=== PATIENT | female | born 1955 | race Caucasian/White ===

== ENCOUNTER 2017-06-28 08:54 | Day surgery (SDC) | payer OTHER ==
[2017-06-28 09:19] LABS: URINE APPEARANCE SLCLOUDY; URINE BILIRUBIN NEGATIVE (NEGATIVE); URINE BLOOD NEGATIVE (NEGATIVE); URINE COLOR YELLOW; URINE GLUCOSE (UA) NEGATIVE (NEGATIVE); URINE KETONE TRACE (NEGATIVE); URINE LEUK ESTERASE TRACE (NEGATIVE); URINE NITRITE POSITIVE (NEGATIVE); URINE PROTEIN NEGATIVE (NEGATIVE); URINE UROBILINOGEN NEGATIVE mg/dL (0.2-1.0)
[2017-06-28 09:29] LABS: EPI CELLS MODERATE /HPF (FEW); URINE BACTERIA RARE /hpf (NONE SEEN); URINE MUCUS RARE
--- NOTE | 2017-06-28 09:35 | HP ---
History & Physical Update - History History: No Change - Physical Physical: No Change - Assessment Assessment: No Change - Plan Plan: No Change
[2017-06-28] MEDS ORDERED: LIDOCAINE HCL 1%, 10 MG/ML (20ML VIAL) ONE (12:37)
[2017-06-28] MEDS ORDERED: MIDAZOLAM HCL 2 MG/2 ML SINGLE DOSE VIAL ONE (12:47)
[2017-06-28] MEDS ORDERED: PROPOFOL 20 ML ONE ×2 (12:51)
[2017-06-28] MEDS ORDERED: ceFAZolin SODIUM 1 GM VIAL IVPB ONE (12:54)
[2017-06-28] MEDS ORDERED: PROMETHAZINE HCL 25 MG/1 ML VIAL IVPUSH PRN (14:04)
[2017-06-28] MEDS ORDERED: ONDANSETRON 4 MG/2 ML VIAL IVPUSH PRN (14:04)
[2017-06-28] MEDS ORDERED: oxyCODONE HCL 5 MG TABLET PO PRN (14:04)
[2017-06-28] MEDS ORDERED: LACTATED RINGERS SOLUTION 1,000 ML IV SCH (14:15)
[2017-06-28 15:39] VITALS: TEMP 97.8
[2017-06-28] MEDS ORDERED: ACETAMINOPHEN 325 MG TABLET (FP) PO ONE (15:55)
[2017-06-28] MEDS ORDERED: ACETAMINOPHEN 325 MG TABLET (FP) ONE (15:58)
[2017-06-28] MEDS ORDERED: ACETAMINOPHEN 325 MG TABLET (FP) PO PRN ×2 (16:10→16:27)
[2017-06-28 17:32] VITALS: BP 150/80; PULSE 76
--- NOTE | 2017-06-29 12:11 | OP ---
DATE OF OPERATION: 06/28/2017 PREOPERATIVE DIAGNOSIS: Left breast ductal carcinoma in situ. POSTOPERATIVE DIAGNOSIS: Left breast ductal carcinoma in situ. PROCEDURE PERFORMED: Left breast wire-localized lumpectomy. SURGEON: Bertha Mcdonnell MD ANESTHESIA: General. ESTIMATED BLOOD LOSS: Minimal. COMPLICATIONS: None. DISPOSITION: Stable at the end of the procedure. INDICATIONS FOR PROCEDURE: The patient had a routine screening mammography and ultrasound that noted a density in the upper outer left breast. A needle biopsy of this, done by the radiologist, showed ductal carcinoma in situ. My recommendation was a lumpectomy. The procedure was discussed with her and all her questions answered. DESCRIPTION OF PROCEDURE: The patient was brought to [facility] in [place]. She was taken for breast imaging, where a wire was used to localize the clip in the upper outer left breast. She was then brought to the operating room. After the induction of general anesthesia and IV antibiotics, the left breast was prepped and draped in the usual sterile fashion. The area in the upper outer left breast was anesthetized with 1% lidocaine without epinephrine. A periareolar incision was made in the upper outer left breast, and the wire was used as a guide to get down to the area of interest. This was excised en bloc, tagged with a long suture lateral and a short suture superior, and sent for specimen radiograph. Hemostasis was assured with electrocautery. The specimen radiograph showed the clip and wire to be intact in the specimen. This was sent to Pathology for permanent section. Once hemostasis was assured, the parenchyma was approximated with interrupted 2-0 Vicryl. The skin was approximated with interrupted 3-0 Vicryl and running 4-0 Prolene. A sterile dressing with Tegaderm and 4 x 4's was applied. She tolerated the procedure well. She was extubated on the operating room table and taken to Recovery in good condition. Edi [id number]
--- NOTE | 2017-07-03 14:19 | PATH ---
Surgical Pathology Report Patient Name: REGINA DRAPER [facility]. Rec. #: [id number] /Age/Gender: 1955 (Age: 61) / F Account: [id number] [facility] Taken: 06/28/2017 Received: 06/28/2017 Reported: 07/03/2017 Physicians: eBrtha Mcdonnell M.D. Specimen(s) Received LEFT BREAST LUMPECTOMY Clinical History DCIS Final Diagnosis BREAST, LEFT, LUMPECTOMY: DUCTAL CARCINOMA IN SITU (DCIS), SOLID AND CRIBRIFORM TYPES, LOW NUCLEAR GRADE, PRESENT IN TWO OF TWELVE SLIDES (06/24). DCIS MEASURES 7 MM IN GREATEST DIMENSION, MICROSCOPICALLY. SURGICAL MARGINS ARE UNINVOLVED BY CARCINOMA; CARCINOMA IS AT 2 MM FROM THE CLOSEST SUPERIOR MARGIN. PATHOLOGIC STAGE (pTNM): pTis pNx SEE DCIS CASE SUMMARY BELOW. Comments DCIS of the Breast: Surgical Pathology Cancer Case Summary (Based on AJCC TNM 8 th edition) Procedure _X_ Excision (less than total mastectomy) Specimen Laterality _X_ Left Size (Extent) of DCIS Estimated size (extent) of DCIS (greatest dimension using gross and microscopic evaluation): at least (millimeters): 7 mm Number of blocks with DCIS: 2 Number of blocks examined: 12 Note: The size (extent) of DCIS is an estimation of the volume of breast tissue occupied by DCIS. Histologic Type _X_ Ductal carcinoma in situ Architectural Patterns _X_ Cribriform _X_ Solid Nuclear Grade _X_ Grade I (low) Necrosis _X_ Not identified Margins _X_ Uninvolved by DCIS Distance from closest margin (millimeters): 2 mm Specify margin(s): superior margin Regional Lymph Nodes _X_ No lymph nodes submitted or found Microcalcifications _X_ Not identified Breast Prognostic markers: Results of Estrogen Receptor (ER) and Progesterone Receptor (ND) studies performed on block "8" at [facility] are as follows: ER (clone [id number] mouse monoclonal antibody by [employer]): 99% nuclear staining with strong intensity (Positive). ND (clone16 mouse monoclonal antibody by [employer]):~60% nuclear staining with weak to moderate intensity (Positive). Positive and negative controls (internal if applicable) show appropriate results. Formalin fixation and cold ischemic times are within current ASCO/CAP recommendations for ER, ND and Her2 testing. Comment: Immunohistochemical stains performed and interpreted at [facility] for p63 and smooth muscle myosin (SMMHC) show preserved myoepithelial cells surrounding the DCIS. Electronically Signed Amparo Pressley M.D. Gross Description Received fresh on an AccuGrid, labeled "left breast lumpectomy," is a 5.6 x 3.7 x 1.7 cm. almonte-yellow, irregular, portion of fibroadipose tissue with a needle localization wire present. There is a short suture marking the superior aspect and a long suture marking the lateral aspect, per the surgeon. There is no skin or nipple present. The specimen is inked as follows: superior and lateral blue; inferior green; medial yellow; anterior red; deep black. The specimen is serially sectioned from medial to lateral. Sectioning reveals abundant dense, white, focally firm fibrous tissue. A biopsy clip is identified. No definitive mass is identified. Hyster Driver sections are submitted in 12 cassettes as follows: 1-9-fibrous tissue sequentially submitted from medial to lateral with the biopsy clip in cassettes 6-7 (each with anterior, superior and inferior margins); 10-medial margin; 11-lateral margin; 12-deep margin. Total formalin fixation time: Approximately 8 hours 06/28/201706/28/2017
== END 2017-06-28 17:15 | disposition home or self-care (01) ==
LOC: JASU-SURG 08:54 → EDBD 11:00 → JASU-SURG 17:15
PROVIDERS: ATTEND Surgery
PROC: 0HBU0ZZ Excision of Left Breast, Open Approach (ICD-10-PCS; principal; 2017-06-28 11:00)
DX: D05.12 Intraductal carcinoma in situ of left breast (principal)
CPT/HCPCS: 19281; 81003; 81015; 82962; 88307-TC; 88341-TC; 88342-TC; 94760

== ENCOUNTER 2020-05-06 10:06 | Emergency (ER) | payer MEDICARE, OTHER ==
[2020-05-06 10:26] VITALS: BP 175/87; PULSE 89; TEMP 97.2; BMI 38.6
[2020-05-06] MEDS ORDERED: AMPICILLIN NA/SULBACTAM NA 3 GM in SODIUM CHLORIDE 100 ML IVPB ONE (10:57)
== END 2020-05-06 12:17 | disposition home or self-care (01) ==
LOC: JERFT 10:06
DX: N61.22 Granulomatous mastitis, left breast (principal)
CPT/HCPCS: 99284-25

== ENCOUNTER 2020-12-19 10:02 | Emergency (ER) | payer OTHER ==
[2020-12-19 10:13] VITALS: BP 160/85; PULSE 91; TEMP 97.9; BMI 30.5
== END 2020-12-19 11:50 | disposition home or self-care (01) ==
LOC: JER 10:02
DX: N61.0 Mastitis without abscess (principal)
CPT/HCPCS: 99281-25

== ENCOUNTER 2021-03-03 16:36 | Emergency (ER) | payer OTHER ==
[2021-03-03 16:45] VITALS: BP 163/88; PULSE 84; TEMP 98.3; BMI 31.7
== END 2021-03-03 20:21 | disposition home or self-care (01) ==
LOC: JER 16:36
DX: N61.0 Mastitis without abscess (principal)
CPT/HCPCS: 76604; 99284-25

== ENCOUNTER 2021-07-01 13:39 | Inpatient (IN) | payer OTHER ==
[2021-07-01 13:48] VITALS: BMI 29.2
[2021-07-01 15:18] LABS: BASO % 0.7 % (0-2.0); EOS % 1.2 % (0-4.5); HEMATOCRIT 37.7 % (32.4-45.2); HEMOGLOBIN 12.7 GM/dL (10.7-15.3); LYMPH % 20.9 % (8-40); MCH 28.5 pg (25.7-33.7); MCHC 33.8 g/dl (32.0-36.0); MEAN CELL VOLUME 84.2 fl (80-96); MONO % 3.8 % (3.8-10.2); NEUT % 73.4 % (42.8-82.8); PLATELET COUNT 340 10^3/uL (134-434); RBC 4.47 M/mm3 (3.60-5.2); RDW 14.1 % (11.6-15.6); WHITE BLOOD COUNT 6.7 K/mm3 (4.0-10.0)
[2021-07-01 15:42] LABS: CALCIUM 9.2 mg/dL (8.5-10.1)
[2021-07-01 15:43] LABS: ALBUMIN 3.8 g/dl (3.4-5.0)
[2021-07-01 15:46] LABS: CREATININE 0.8 mg/dL (0.55-1.3)
[2021-07-01 15:48] LABS: BILIRUBIN,TOTAL 0.6 mg/dL (0.2-1); TOT PROT 7.9 g/dl (6.4-8.2)
[2021-07-01] MEDS ORDERED: METOCLOPRAMIDE HCL INJECTION 10 MG/2 ML VIAL IVPB ONE (16:15)
[2021-07-01] MEDS ORDERED: ACETAMINOPHEN 325 MG TABLET (FP) PO ONE (16:21)
[2021-07-01] MEDS ORDERED: METOCLOPRAMIDE HCL INJECTION 10 MG/2 ML VIAL ONE (16:43)
[2021-07-01] MEDS ORDERED: ACETAMINOPHEN 325 MG TABLET (FP) ONE (16:44)
[2021-07-01] MEDS ORDERED: MECLIZINE HCL 12.5 MG TABLET PO PRN (17:32)
[2021-07-01] MEDS ORDERED: ACETAMINOPHEN/CAFFEINE/BUTALBITAL 1 TAB PO PRN (17:32)
[2021-07-01] MEDS ORDERED: amLODIPine BESYLATE 5 MG TABLET (FP) PO ONE (17:45)
[2021-07-01] MEDS ORDERED: amLODIPine BESYLATE 5 MG TABLET (FP) ONE (18:43)
[2021-07-01] MEDS ORDERED: HEPARIN NA (PORCINE) 5,000 UNITS/ML 1ML VIAL ONE ×2 (18:43→22:50)
[2021-07-01] MEDS: HEPARIN NA (PORCINE) 5,000 UNITS/ML 1ML VIAL SQ SCH ×2 (18:50→23:26)
[2021-07-01 19:03] LABS: SARS AG REFLEX COV19 SEND OUT negative (Negative)
[2021-07-02] MEDS ORDERED: HEPARIN NA (PORCINE) 5,000 UNITS/ML 1ML VIAL ONE ×2 (06:08→15:12)
[2021-07-02] MEDS: HEPARIN NA (PORCINE) 5,000 UNITS/ML 1ML VIAL SQ SCH ×3 (06:21→21:48)
[2021-07-02] MEDS ORDERED: NIFEdipine E.R. 30 MG TABLET ONE (07:58)
[2021-07-02] MEDS: INSULIN SLIDING SCALE (NOVOLOG) 1 VIAL SQ SCH ×3 (09:11→17:07)
[2021-07-02] MEDS: NIFEdipine E.R. 30 MG TABLET PO SCH (10:00)
[2021-07-02 10:54] LABS: EOS % 2.1 % (0-4.5); HEMOGLOBIN 12.8 GM/dL (10.7-15.3); LYMPH % 47.1 % (8-40); MCH 28.5 pg (25.7-33.7); MCHC 33.7 g/dl (32.0-36.0); MEAN CELL VOLUME 84.8 fl (80-96); MEAN PLT VOLUME 7.9 fl (7.5-11.1); MONO % 5.5 % (3.8-10.2); NEUT % 44.3 % (42.8-82.8); PLATELET COUNT 318 10^3/uL (134-434); RBC 4.49 M/mm3 (3.60-5.2); WHITE BLOOD COUNT 4.6 K/mm3 (4.0-10.0)
[2021-07-02 11:03] LABS: CALCIUM 9.2 mg/dL (8.5-10.1)
[2021-07-02 11:04] LABS: ALBUMIN 3.8 g/dl (3.4-5.0); BLOOD UREA NITROGEN 10.5 mg/dL (7-18)
[2021-07-02 11:07] LABS: CREATININE 0.6 mg/dL (0.55-1.3)
[2021-07-02 11:09] LABS: BILIRUBIN,TOTAL 0.3 mg/dL (0.2-1); TOT PROT 7.9 g/dl (6.4-8.2)
[2021-07-02] MEDS: LISINOPRIL 5 MG TABLET PO SCH (15:00)
[2021-07-02 15:07] LABS: SARS-CoV-2 NAA Not Detected (Not Detected)
[2021-07-02] MEDS ORDERED: LISINOPRIL 5 MG TABLET ONE (15:12)
[2021-07-02] MEDS ORDERED: PNEUMOC 13-VAL CONJ-DIP CRM/PF 0.5 ML DISP.SYRIN IM ONE (17:03)
[2021-07-03] MEDS: HEPARIN NA (PORCINE) 5,000 UNITS/ML 1ML VIAL SQ SCH ×2 (06:02→13:31)
[2021-07-03] MEDS: INSULIN SLIDING SCALE (NOVOLOG) 1 VIAL SQ SCH ×2 (06:03→12:41)
[2021-07-03] MEDS: NIFEdipine E.R. 30 MG TABLET PO SCH (09:00)
[2021-07-03] MEDS: LISINOPRIL 5 MG TABLET PO SCH (09:00)
[2021-07-03 15:09] VITALS: BP 135/76; PULSE 88; TEMP 98.1
== END 2021-07-03 17:06 | disposition home or self-care (01) | DRG 149 ==
LOC: JER 13:39 → JERBED 17:20 → OBSVTOIN 17:32 → J4W 07-02 15:51
DX: H81.13 Benign paroxysmal vertigo, bilateral (principal); E87.1 Hypo-osmolality and hyponatremia; I10 Essential (primary) hypertension; E11.9 Type 2 diabetes mellitus without complications; Z85.3 Personal history of malignant neoplasm of breast; R51.9 Headache, unspecified; R11.0 Nausea
CPT/HCPCS: 36415; 70450-TC; 71045-TC-FY; 80053; 82962; 84484; 85025; 87426; 90670; 93005; 93010; 93306-TC; 99285-25; C9803; G0378; J1644; U0003; U0005

== ENCOUNTER 2021-07-04 16:52 | Inpatient (IN) | payer OTHER ==
[2021-07-04] MEDS ORDERED: MECLIZINE HCL 25 MG TABLET (FP) PO ONE (17:51)
[2021-07-04] MEDS ORDERED: MECLIZINE HCL 25 MG TABLET (FP) ONE (18:09)
[2021-07-04 20:18] LABS: BASO % 0.5 % (0-2.0); EOS % 0.6 % (0-4.5); HEMATOCRIT 39.1 % (32.4-45.2); HEMOGLOBIN 12.9 GM/dL (10.7-15.3); LYMPH % 17.3 % (8-40); MCH 27.9 pg (25.7-33.7); MEAN CELL VOLUME 84.5 fl (80-96); MEAN PLT VOLUME 7.9 fl (7.5-11.1); MONO % 4.6 % (3.8-10.2); PLATELET COUNT 355 10^3/uL (134-434); RBC 4.62 M/mm3 (3.60-5.2); RDW 14.4 % (11.6-15.6); WHITE BLOOD COUNT 7.4 K/mm3 (4.0-10.0)
[2021-07-04 20:32] LABS: ALBUMIN 3.7 g/dl (3.4-5.0); BLOOD UREA NITROGEN 11.4 mg/dL (7-18); CALCIUM 9.3 mg/dL (8.5-10.1)
[2021-07-04 20:35] LABS: CREATININE 0.8 mg/dL (0.55-1.3)
[2021-07-04 20:37] LABS: BILIRUBIN,TOTAL 0.3 mg/dL (0.2-1); TOT PROT 8.1 g/dl (6.4-8.2)
[2021-07-04] MEDS ORDERED: ONDANSETRON 4 MG/2 ML VIAL ONE (20:49)
[2021-07-04] MEDS ORDERED: ACETAMINOPHEN 325 MG TABLET (FP) PO PRN (21:28)
[2021-07-04] MEDS ORDERED: ATORVASTATIN CA 80 MG TABLET (FP) ONE (22:52)
[2021-07-04] MEDS: ATORVASTATIN CA 80 MG TABLET (FP) PO SCH (22:55)
[2021-07-04] MEDS: INSULIN SLIDING SCALE (NOVOLOG) 1 VIAL SQ SCH (22:55)
[2021-07-04] MEDS: FLUTICASONE PROP 0.05% 16 GM NASAL SPRAY NS SCH (22:55)
[2021-07-05] MEDS ORDERED: ONDANSETRON 4 MG/2 ML VIAL IVPUSH PRN (01:00)
[2021-07-05] MEDS ORDERED: MECLIZINE HCL 12.5 MG TABLET PO PRN (02:00)
[2021-07-05 08:01] LABS: BASO % 0.4 % (0-2.0); EOS % 1.4 % (0-4.5); HEMOGLOBIN 12.4 GM/dL (10.7-15.3); LYMPH % 20.5 % (8-40); MCH 27.8 pg (25.7-33.7); MCHC 32.6 g/dl (32.0-36.0); MEAN CELL VOLUME 85.2 fl (80-96); MEAN PLT VOLUME 8.4 fl (7.5-11.1); MONO % 6.1 % (3.8-10.2); NEUT % 71.6 % (42.8-82.8); PLATELET COUNT 354 10^3/uL (134-434); RBC 4.46 M/mm3 (3.60-5.2); RDW 14.2 % (11.6-15.6); WHITE BLOOD COUNT 7.6 K/mm3 (4.0-10.0)
[2021-07-05] MEDS: INSULIN SLIDING SCALE (NOVOLOG) 1 VIAL SQ SCH ×4 (08:03→22:43)
[2021-07-05 08:08] LABS: EPI CELLS 9 /uL (0-25.1); HYALINE CASTS 5 /uL (0-3.1); URINE APPEARANCE CLOUDY; URINE BACTERIA >9,000 /uL (0-1359); URINE BILIRUBIN NEGATIVE (NEGATIVE); URINE COLOR YELLOW; URINE GLUCOSE (UA) 3+ (NEGATIVE); URINE KETONE TRACE (NEGATIVE); URINE LEUK ESTERASE 1+ (NEGATIVE); URINE NITRITE NEGATIVE (NEGATIVE); URINE PROTEIN TRACE (NEGATIVE); URINE RBC 11 /uL (0-23.9); URINE UROBILINOGEN 0.2 mg/dL (0.2-1.0); URINE WBC 340 /uL (0-25.8)
[2021-07-05 08:13] LABS: ALBUMIN 3.5 g/dl (3.4-5.0); BLOOD UREA NITROGEN 14.7 mg/dL (7-18); CALCIUM 9.2 mg/dL (8.5-10.1); MAGNESIUM 2.2 mg/dL (1.8-2.4)
[2021-07-05 08:14] LABS: CHOLESTEROL 261 mg/dL (50-200); TRIGLYCERIDES 280 mg/dL (0-150)
[2021-07-05 08:16] LABS: CREATININE 0.8 mg/dL (0.55-1.3); LDL CHOLESTEROL (ONLY SJRH) 159 mg/dL (5-100); PHOSPHOROUS 4.3 mg/dL (2.5-4.9)
[2021-07-05 08:18] LABS: BILIRUBIN,TOTAL 0.3 mg/dL (0.2-1); HDL CHOLESTEROL 53 mg/dL (40-60); TOT PROT 7.4 g/dl (6.4-8.2)
[2021-07-05] MEDS ORDERED: ACETAMINOPHEN INJECTION 100 ML IVPB ONE (08:21)
[2021-07-05] MEDS ORDERED: ENOXAPARIN NA (PORCINE) 40 MG/0.4 ML DISP.SYRIN SQ ONE (08:21)
[2021-07-05] MEDS ORDERED: NIFEdipine E.R. 30 MG TABLET ONE (08:21)
[2021-07-05] MEDS ORDERED: METOCLOPRAMIDE HCL INJECTION 10 MG/2 ML VIAL ONE (08:21)
[2021-07-05] MEDS ORDERED: LISINOPRIL 5 MG TABLET PO SCH (10:00)
[2021-07-05] MEDS ORDERED: NIFEdipine E.R. 30 MG TABLET PO SCH (10:00)
[2021-07-05] MEDS: ASPIRIN COATED 81 MG TABLET.EC PO SCH (10:47)
[2021-07-05] MEDS: ENOXAPARIN NA (PORCINE) 40 MG/0.4 ML DISP.SYRIN SQ SCH (10:47)
[2021-07-05] MEDS ORDERED: LISINOPRIL 5 MG TABLET PO ONE (15:29)
[2021-07-05] MEDS: FLUTICASONE PROP 0.05% 16 GM NASAL SPRAY NS SCH ×2 (18:38→22:47)
[2021-07-05] MEDS: MECLIZINE HCL 12.5 MG TABLET PO SCH ×2 (18:40→23:49)
[2021-07-05] MEDS ORDERED: NIFEdipine E.R. 30 MG TABLET PO ONE (19:15)
[2021-07-05] MEDS ORDERED: LABETALOL HCL 100 MG TABLET (FP) PO ONE (20:15)
[2021-07-05] MEDS ORDERED: INSULIN (LEVEMIR) 100 UNITS/ML UNITS SQ SCH (22:00)
[2021-07-05] MEDS: LISINOPRIL 5 MG TABLET PO SCH (22:35)
[2021-07-05] MEDS: ATORVASTATIN CA 80 MG TABLET (FP) PO SCH (22:36)
[2021-07-06] MEDS: BENZOCAINE/MENTH/CETYLPYRD CL 1 EACH LOZENGE MM PRN (05:36)
[2021-07-06] MEDS: MECLIZINE HCL 12.5 MG TABLET PO SCH ×3 (05:36→21:39)
[2021-07-06] MEDS: INSULIN SLIDING SCALE (NOVOLOG) 1 VIAL SQ SCH ×4 (06:08→21:41)
[2021-07-06 08:58] LABS: HEMATOCRIT 36.1 % (32.4-45.2); HEMOGLOBIN 11.8 GM/dL (10.7-15.3); MCHC 32.8 g/dl (32.0-36.0); MEAN CELL VOLUME 85.5 fl (80-96); PLATELET COUNT 309 10^3/uL (134-434); RBC 4.22 M/mm3 (3.60-5.2); RDW 14.1 % (11.6-15.6); WHITE BLOOD COUNT 6.3 K/mm3 (4.0-10.0)
[2021-07-06 09:19] LABS: CALCIUM 8.9 mg/dL (8.5-10.1)
[2021-07-06 09:22] LABS: BLOOD UREA NITROGEN 17.6 mg/dL (7-18)
[2021-07-06 09:23] LABS: CREATININE 0.8 mg/dL (0.55-1.3)
[2021-07-06] MEDS ORDERED: LISINOPRIL 5 MG TABLET PO SCH (10:00)
[2021-07-06] MEDS ORDERED: DEXTROSE 5%-WATER - 50 ML IVPB ONE (11:32)
[2021-07-06] MEDS ORDERED: cefTRIAXone SODIUM 1 GM VIAL ONE (11:32)
[2021-07-06] MEDS: CEFTRIAXONE 1 GM in DEXTROSE 5%-WATER - 50 ML IVPB SCH (11:35)
[2021-07-06] MEDS: ASPIRIN COATED 81 MG TABLET.EC PO SCH (11:36)
[2021-07-06] MEDS: CLOPIDOGREL BISULFATE 75 MG TABLET (FP) PO SCH (11:37)
[2021-07-06] MEDS: NIFEdipine E.R. 30 MG TABLET PO SCH (11:37)
[2021-07-06] MEDS: ENOXAPARIN NA (PORCINE) 40 MG/0.4 ML DISP.SYRIN SQ SCH (11:38)
[2021-07-06] MEDS: FLUTICASONE PROP 0.05% 16 GM NASAL SPRAY NS SCH ×2 (11:38→21:39)
[2021-07-06] MEDS: LISINOPRIL 5 MG TABLET PO SCH ×2 (11:49→21:40)
[2021-07-06 13:14] VITALS: BMI 30.2
[2021-07-06] MEDS ORDERED: ATORVASTATIN CA 40 MG TABLET (FP) ONE (21:05)
[2021-07-06] MEDS: ATORVASTATIN CA 80 MG TABLET (FP) PO SCH (21:40)
[2021-07-07] MEDS: MECLIZINE HCL 12.5 MG TABLET PO SCH (06:36)
[2021-07-07] MEDS: INSULIN SLIDING SCALE (NOVOLOG) 1 VIAL SQ SCH ×5 (06:36→22:42)
[2021-07-07 08:21] LABS: HEMATOCRIT 35.3 % (32.4-45.2); HEMOGLOBIN 11.8 GM/dL (10.7-15.3); MCH 28.6 pg (25.7-33.7); MCHC 33.5 g/dl (32.0-36.0); MEAN CELL VOLUME 85.6 fl (80-96); MEAN PLT VOLUME 7.9 fl (7.5-11.1); PLATELET COUNT 278 10^3/uL (134-434); RBC 4.12 M/mm3 (3.60-5.2); RDW 14.4 % (11.6-15.6)
[2021-07-07 08:44] LABS: ALBUMIN 3.3 g/dl (3.4-5.0); BLOOD UREA NITROGEN 16.4 mg/dL (7-18); CALCIUM 8.5 mg/dL (8.5-10.1)
[2021-07-07 08:48] LABS: CREATININE 0.7 mg/dL (0.55-1.3); PHOSPHOROUS 4.6 mg/dL (2.5-4.9)
[2021-07-07 08:50] LABS: TOT PROT 7.1 g/dl (6.4-8.2)
[2021-07-07 08:53] LABS: BILIRUBIN,TOTAL 0.4 mg/dL (0.2-1)
[2021-07-07] MEDS: INSULIN (LEVEMIR) 100 UNITS/ML UNITS SQ SCH (08:56)
[2021-07-07] MEDS ORDERED: DEXTROSE 5%-WATER - 50 ML IVPB ONE (09:04)
[2021-07-07] MEDS ORDERED: cefTRIAXone SODIUM 1 GM VIAL ONE (09:04)
[2021-07-07] MEDS: CLOPIDOGREL BISULFATE 75 MG TABLET (FP) PO SCH (09:05)
[2021-07-07] MEDS: ASPIRIN COATED 81 MG TABLET.EC PO SCH (09:05)
[2021-07-07] MEDS: NIFEdipine E.R. 30 MG TABLET PO SCH (09:05)
[2021-07-07] MEDS: ENOXAPARIN NA (PORCINE) 40 MG/0.4 ML DISP.SYRIN SQ SCH (09:05)
[2021-07-07] MEDS: LISINOPRIL 5 MG TABLET PO SCH (09:05)
[2021-07-07] MEDS: FLUTICASONE PROP 0.05% 16 GM NASAL SPRAY NS SCH ×2 (09:06→22:51)
[2021-07-07] MEDS: CEFTRIAXONE 1 GM in DEXTROSE 5%-WATER - 50 ML IVPB SCH (09:06)
[2021-07-07] MEDS ORDERED: MECLIZINE HCL 12.5 MG TABLET PO ONE (10:28)
[2021-07-07] MEDS ORDERED: INSULIN (LEVEMIR) 100 UNITS/ML UNITS SQ SCH (22:00)
[2021-07-07] MEDS ORDERED: ATORVASTATIN CA 40 MG TABLET (FP) ONE (22:09)
[2021-07-07] MEDS: ATORVASTATIN CA 80 MG TABLET (FP) PO SCH (22:32)
[2021-07-07] MEDS: LISINOPRIL 20 MG TABLET PO SCH (22:32)
[2021-07-07] MEDS: MECLIZINE HCL 25 MG TABLET (FP) PO SCH (22:32)
[2021-07-07] MEDS: ACETAMINOPHEN 325 MG TABLET (FP) PO PRN (22:43)
[2021-07-08] MEDS: INSULIN (LEVEMIR) 100 UNITS/ML UNITS SQ SCH ×2 (06:38→21:53)
[2021-07-08] MEDS: INSULIN SLIDING SCALE (NOVOLOG) 1 VIAL SQ SCH ×4 (06:39→21:59)
[2021-07-08 08:55] LABS: HEMATOCRIT 35.2 % (32.4-45.2); HEMOGLOBIN 11.7 GM/dL (10.7-15.3); MCH 28.4 pg (25.7-33.7); MCHC 33.2 g/dl (32.0-36.0); MEAN CELL VOLUME 85.6 fl (80-96); PLATELET COUNT 308 10^3/uL (134-434); RBC 4.12 M/mm3 (3.60-5.2); RDW 14.2 % (11.6-15.6); WHITE BLOOD COUNT 6.8 K/mm3 (4.0-10.0)
[2021-07-08 09:16] LABS: BLOOD UREA NITROGEN 13.5 mg/dL (7-18); CALCIUM 9.3 mg/dL (8.5-10.1)
[2021-07-08 09:21] LABS: CREATININE 0.7 mg/dL (0.55-1.3); PHOSPHOROUS 4.5 mg/dL (2.5-4.9)
[2021-07-08] MEDS ORDERED: DEXTROSE 5%-WATER - 50 ML IVPB ONE (09:30)
[2021-07-08] MEDS ORDERED: cefTRIAXone SODIUM 1 GM VIAL ONE (09:30)
[2021-07-08] MEDS: MECLIZINE HCL 25 MG TABLET (FP) PO SCH ×2 (09:31→21:52)
[2021-07-08] MEDS: LISINOPRIL 20 MG TABLET PO SCH ×2 (09:31→21:59)
[2021-07-08] MEDS: NIFEdipine E.R. 30 MG TABLET PO SCH (09:31)
[2021-07-08] MEDS: CLOPIDOGREL BISULFATE 75 MG TABLET (FP) PO SCH (09:31)
[2021-07-08] MEDS: ASPIRIN COATED 81 MG TABLET.EC PO SCH (09:31)
[2021-07-08] MEDS: CEFTRIAXONE 1 GM in DEXTROSE 5%-WATER - 50 ML IVPB SCH (09:32)
[2021-07-08] MEDS: FLUTICASONE PROP 0.05% 16 GM NASAL SPRAY NS SCH ×2 (09:32→21:53)
[2021-07-08] MEDS: ENOXAPARIN NA (PORCINE) 40 MG/0.4 ML DISP.SYRIN SQ SCH (09:32)
[2021-07-08] MEDS ORDERED: guaiFENesin/CODEINE 10 ML UNIT-DOSE CUPS PO ONE (20:20)
[2021-07-08] MEDS ORDERED: ATORVASTATIN CA 40 MG TABLET (FP) ONE ×2 (21:07→22:01)
[2021-07-08] MEDS: ATORVASTATIN CA 80 MG TABLET (FP) PO SCH (21:59)
[2021-07-08] MEDS: BENZOCAINE/MENTH/CETYLPYRD CL 1 EACH LOZENGE MM PRN (21:59)
[2021-07-08] MEDS: ACETAMINOPHEN 325 MG TABLET (FP) PO PRN (21:59)
[2021-07-09] MEDS: INSULIN (LEVEMIR) 100 UNITS/ML UNITS SQ SCH ×2 (06:16→21:52)
[2021-07-09] MEDS: INSULIN SLIDING SCALE (NOVOLOG) 1 VIAL SQ SCH ×4 (06:16→21:52)
[2021-07-09] MEDS ORDERED: guaiFENesin 200 MG/10 ML 10 ML UNIT-DOSE CUPS PO PRN (09:17)
[2021-07-09] MEDS ORDERED: cefTRIAXone SODIUM 1 GM VIAL ONE (09:21)
[2021-07-09] MEDS ORDERED: DEXTROSE 5%-WATER - 50 ML IVPB ONE (09:21)
[2021-07-09] MEDS: CEFTRIAXONE 1 GM in DEXTROSE 5%-WATER - 50 ML IVPB SCH (09:24)
[2021-07-09] MEDS: ENOXAPARIN NA (PORCINE) 40 MG/0.4 ML DISP.SYRIN SQ SCH (09:24)
[2021-07-09] MEDS: ASPIRIN COATED 81 MG TABLET.EC PO SCH (09:24)
[2021-07-09] MEDS: NIFEdipine E.R. 30 MG TABLET PO SCH (09:24)
[2021-07-09] MEDS: MECLIZINE HCL 25 MG TABLET (FP) PO SCH ×2 (09:24→21:53)
[2021-07-09] MEDS: CLOPIDOGREL BISULFATE 75 MG TABLET (FP) PO SCH (09:24)
[2021-07-09] MEDS: LISINOPRIL 20 MG TABLET PO SCH ×2 (09:25→21:53)
[2021-07-09] MEDS: FLUTICASONE PROP 0.05% 16 GM NASAL SPRAY NS SCH ×2 (09:25→21:53)
[2021-07-09] MEDS ORDERED: GLYCERIN 1 RECTAL SUPPOSITORY, ADULT RC ONE (10:00)
[2021-07-09] MEDS: POLYETHYLENE GLYCOL (HEALTHYLAX) 3350 17 GM PACKET PO SCH (10:19)
[2021-07-09] MEDS ORDERED: guaiFENesin/CODEINE 10 ML UNIT-DOSE CUPS PO ONE (19:54)
[2021-07-09] MEDS ORDERED: ATORVASTATIN CA 40 MG TABLET (FP) ONE (21:14)
[2021-07-09] MEDS: BENZOCAINE/MENTH/CETYLPYRD CL 1 EACH LOZENGE MM PRN (21:53)
[2021-07-09] MEDS: DOCUSATE SODIUM 100 MG CAPSULE (FP) PO SCH (21:53)
[2021-07-09] MEDS: ACETAMINOPHEN 325 MG TABLET (FP) PO PRN (21:53)
[2021-07-09] MEDS: ATORVASTATIN CA 80 MG TABLET (FP) PO SCH (21:53)
[2021-07-10] MEDS: INSULIN (LEVEMIR) 100 UNITS/ML UNITS SQ SCH ×2 (06:03→21:40)
[2021-07-10] MEDS: INSULIN SLIDING SCALE (NOVOLOG) 1 VIAL SQ SCH ×4 (06:03→21:41)
[2021-07-10 08:15] LABS: HEMATOCRIT 34.7 % (32.4-45.2); HEMOGLOBIN 11.7 GM/dL (10.7-15.3); MCH 28.7 pg (25.7-33.7); MCHC 33.7 g/dl (32.0-36.0); MEAN CELL VOLUME 85.3 fl (80-96); MEAN PLT VOLUME 7.4 fl (7.5-11.1); PLATELET COUNT 358 10^3/uL (134-434); RBC 4.07 M/mm3 (3.60-5.2); RDW 14.2 % (11.6-15.6)
[2021-07-10 08:40] LABS: CALCIUM 9.2 mg/dL (8.5-10.1)
[2021-07-10 08:41] LABS: BLOOD UREA NITROGEN 11.4 mg/dL (7-18); MAGNESIUM 2.1 mg/dL (1.8-2.4)
[2021-07-10 08:44] LABS: CREATININE 0.7 mg/dL (0.55-1.3); PHOSPHOROUS 3.9 mg/dL (2.5-4.9)
[2021-07-10] MEDS ORDERED: cefTRIAXone SODIUM 1 GM VIAL ONE (08:47)
[2021-07-10] MEDS ORDERED: DEXTROSE 5%-WATER - 50 ML IVPB ONE (08:47)
[2021-07-10] MEDS: CEFTRIAXONE 1 GM in DEXTROSE 5%-WATER - 50 ML IVPB SCH (09:18)
[2021-07-10] MEDS: ENOXAPARIN NA (PORCINE) 40 MG/0.4 ML DISP.SYRIN SQ SCH (09:18)
[2021-07-10] MEDS: CLOPIDOGREL BISULFATE 75 MG TABLET (FP) PO SCH (09:19)
[2021-07-10] MEDS: ASPIRIN COATED 81 MG TABLET.EC PO SCH (09:19)
[2021-07-10] MEDS: LISINOPRIL 20 MG TABLET PO SCH ×2 (09:19→21:39)
[2021-07-10] MEDS: POLYETHYLENE GLYCOL (HEALTHYLAX) 3350 17 GM PACKET PO SCH (09:19)
[2021-07-10] MEDS: MECLIZINE HCL 25 MG TABLET (FP) PO SCH ×2 (09:19→21:39)
[2021-07-10] MEDS: FLUTICASONE PROP 0.05% 16 GM NASAL SPRAY NS SCH ×2 (09:20→21:40)
[2021-07-10] MEDS: LABETALOL HCL 100 MG TABLET (FP) PO SCH ×2 (11:24→21:38)
[2021-07-10] MEDS: NIFEdipine E.R. 90 MG TABLET PO SCH (11:25)
[2021-07-10] MEDS ORDERED: ARTIFICIAL TEARS (POLYVINYL ALCOHOL) OPTH DROPS OU PRN (11:53)
[2021-07-10] MEDS ORDERED: ATORVASTATIN CA 40 MG TABLET (FP) ONE (21:32)
[2021-07-10] MEDS: ACETAMINOPHEN 325 MG TABLET (FP) PO PRN (21:38)
[2021-07-10] MEDS: DOCUSATE SODIUM 100 MG CAPSULE (FP) PO SCH (21:38)
[2021-07-10] MEDS: ATORVASTATIN CA 80 MG TABLET (FP) PO SCH (21:40)
[2021-07-11] MEDS: METHYL SALICYLATE/MENTHOL OINT 30 GM TUBE TP SCH ×3 (00:24→21:11)
[2021-07-11] MEDS: INSULIN (LEVEMIR) 100 UNITS/ML UNITS SQ SCH ×2 (06:34→21:07)
[2021-07-11] MEDS: INSULIN SLIDING SCALE (NOVOLOG) 1 VIAL SQ SCH ×4 (06:35→21:07)
[2021-07-11] MEDS: ACETAMINOPHEN 325 MG TABLET (FP) PO PRN ×2 (06:36→16:26)
[2021-07-11 08:49] LABS: HEMATOCRIT 34.9 % (32.4-45.2); HEMOGLOBIN 11.4 GM/dL (10.7-15.3); MCH 28.2 pg (25.7-33.7); MCHC 32.7 g/dl (32.0-36.0); MEAN CELL VOLUME 86.3 fl (80-96); MEAN PLT VOLUME 7.8 fl (7.5-11.1); PLATELET COUNT 348 10^3/uL (134-434); RBC 4.04 M/mm3 (3.60-5.2); RDW 14.3 % (11.6-15.6); WHITE BLOOD COUNT 9.7 K/mm3 (4.0-10.0)
[2021-07-11 09:11] LABS: CALCIUM 8.6 mg/dL (8.5-10.1)
[2021-07-11 09:12] LABS: BLOOD UREA NITROGEN 12.7 mg/dL (7-18); MAGNESIUM 2.1 mg/dL (1.8-2.4)
[2021-07-11 09:15] LABS: CREATININE 0.7 mg/dL (0.55-1.3); PHOSPHOROUS 4.3 mg/dL (2.5-4.9)
[2021-07-11] MEDS ORDERED: DEXTROSE 5%-WATER - 50 ML IVPB ONE (10:00)
[2021-07-11] MEDS ORDERED: cefTRIAXone SODIUM 1 GM VIAL ONE (10:00)
[2021-07-11] MEDS: MECLIZINE HCL 25 MG TABLET (FP) PO SCH ×2 (10:02→21:02)
[2021-07-11] MEDS: ASPIRIN COATED 81 MG TABLET.EC PO SCH (10:03)
[2021-07-11] MEDS: LABETALOL HCL 100 MG TABLET (FP) PO SCH ×2 (10:03→21:02)
[2021-07-11] MEDS: ENOXAPARIN NA (PORCINE) 40 MG/0.4 ML DISP.SYRIN SQ SCH (10:03)
[2021-07-11] MEDS: FLUTICASONE PROP 0.05% 16 GM NASAL SPRAY NS SCH ×2 (10:03→21:11)
[2021-07-11] MEDS: CLOPIDOGREL BISULFATE 75 MG TABLET (FP) PO SCH (10:03)
[2021-07-11] MEDS: POLYETHYLENE GLYCOL (HEALTHYLAX) 3350 17 GM PACKET PO SCH ×2 (10:03→21:04)
[2021-07-11] MEDS: LISINOPRIL 20 MG TABLET PO SCH ×2 (10:04→21:14)
[2021-07-11] MEDS: CEFTRIAXONE 1 GM in DEXTROSE 5%-WATER - 50 ML IVPB SCH (10:04)
[2021-07-11] MEDS: NIFEdipine E.R. 90 MG TABLET PO SCH (10:04)
[2021-07-11] MEDS ORDERED: ATORVASTATIN CA 40 MG TABLET (FP) ONE (20:55)
[2021-07-11] MEDS: ATORVASTATIN CA 80 MG TABLET (FP) PO SCH (21:02)
[2021-07-11] MEDS: DOCUSATE SODIUM 100 MG CAPSULE (FP) PO SCH (21:02)
[2021-07-12] MEDS: INSULIN SLIDING SCALE (NOVOLOG) 1 VIAL SQ SCH ×2 (06:39→11:39)
[2021-07-12] MEDS: INSULIN (LEVEMIR) 100 UNITS/ML UNITS SQ SCH (06:41)
[2021-07-12] MEDS ORDERED: INSULIN (LEVEMIR) 100 UNITS/ML UNITS SQ SCH (07:12)
[2021-07-12] MEDS ORDERED: ACETAMINOPHEN 325 MG TABLET (FP) PO ONE (08:14)
[2021-07-12 09:20] LABS: HEMATOCRIT 35.3 % (32.4-45.2); MCH 29.1 pg (25.7-33.7); MCHC 34.1 g/dl (32.0-36.0); MEAN CELL VOLUME 85.2 fl (80-96); MEAN PLT VOLUME 7.4 fl (7.5-11.1); PLATELET COUNT 383 10^3/uL (134-434); RBC 4.14 M/mm3 (3.60-5.2); RDW 14.4 % (11.6-15.6); WHITE BLOOD COUNT 8.7 K/mm3 (4.0-10.0)
[2021-07-12 10:08] LABS: SARS-CoV-2 NAA Not Detected (Not Detected)
[2021-07-12] MEDS ORDERED: DEXTROSE 5%-WATER - 50 ML IVPB ONE (10:16)
[2021-07-12] MEDS ORDERED: cefTRIAXone SODIUM 1 GM VIAL ONE (10:16)
[2021-07-12 10:17] LABS: CALCIUM 9.2 mg/dL (8.5-10.1)
[2021-07-12 10:18] LABS: BLOOD UREA NITROGEN 11.2 mg/dL (7-18)
[2021-07-12 10:21] LABS: CREATININE 0.8 mg/dL (0.55-1.3)
[2021-07-12] MEDS: ASPIRIN COATED 81 MG TABLET.EC PO SCH (10:51)
[2021-07-12] MEDS: LISINOPRIL 20 MG TABLET PO SCH (10:51)
[2021-07-12] MEDS: MECLIZINE HCL 25 MG TABLET (FP) PO SCH (10:51)
[2021-07-12] MEDS: CLOPIDOGREL BISULFATE 75 MG TABLET (FP) PO SCH (10:51)
[2021-07-12] MEDS: LABETALOL HCL 100 MG TABLET (FP) PO SCH (10:51)
[2021-07-12] MEDS: ENOXAPARIN NA (PORCINE) 40 MG/0.4 ML DISP.SYRIN SQ SCH (10:51)
[2021-07-12] MEDS: CEFTRIAXONE 1 GM in DEXTROSE 5%-WATER - 50 ML IVPB SCH (10:52)
[2021-07-12] MEDS: POLYETHYLENE GLYCOL (HEALTHYLAX) 3350 17 GM PACKET PO SCH (10:52)
[2021-07-12] MEDS: METHYL SALICYLATE/MENTHOL OINT 30 GM TUBE TP SCH (10:53)
[2021-07-12] MEDS: NIFEdipine E.R. 90 MG TABLET PO SCH (10:53)
[2021-07-12] MEDS: FLUTICASONE PROP 0.05% 16 GM NASAL SPRAY NS SCH (10:54)
[2021-07-12 14:17] VITALS: BP 151/78; PULSE 72; TEMP 98.2
[2021-07-13] MEDS ORDERED: INSULIN (LEVEMIR) 100 UNITS/ML UNITS SQ SCH (06:00)
== END 2021-07-12 17:32 | DRG 65 ==
LOC: JER 16:52 → JERBED 20:14 → J5S 07-05 10:23 → J4S 07-05 23:27
PROVIDERS: ADMIT Internal Medicine; ATTEND Internal Medicine
DX: I63.9 Cerebral infarction, unspecified (principal); N39.0 Urinary tract infection, site not specified; G81.94 Hemiplegia, unspecified affecting left nondominant side; Z85.3 Personal history of malignant neoplasm of breast; E11.65 Type 2 diabetes mellitus with hyperglycemia; I69.391 Dysphagia following cerebral infarction; I16.0 Hypertensive urgency; R11.2 Nausea with vomiting, unspecified; E78.5 Hyperlipidemia, unspecified; R42 Dizziness and giddiness; B96.20 Unspecified Escherichia coli [E. coli] as the cause of diseases classified elsewhere; R29.701 NIHSS score 1
CPT/HCPCS: 36415; 70551-TC; 71045-TC-FY; 74230-TC-FY; 80048; 80053; 80061; 81003; 82962; 83036; 83090; 83735; 84100; 84443; 85025; 85027; 87086; 87186; 92611-GN; 93005; 93010; 93880-TC; 97116-GP; 97162-GP; 99285-25; C9803; U0003; U0005

== ENCOUNTER 2023-03-07 09:40 | Emergency (ER) | payer OTHER ==
[2023-03-07 09:49] VITALS: BMI 27.4
[2023-03-07] MEDS ORDERED: ASPIRIN 81 MG CHEWABLE TABLETS PO ONE (11:41)
[2023-03-07] MEDS ORDERED: ASPIRIN 81 MG CHEWABLE TABLETS ONE (11:45)
[2023-03-07 12:25] LABS: EOS % 2.2 % (0-4.5); HEMATOCRIT 43.2 % (32.4-45.2); HEMOGLOBIN 14.3 GM/dL (10.7-15.3); LYMPH % 25.5 % (8-40); MCH 27.8 pg (25.7-33.7); MEAN CELL VOLUME 84.3 fl (80-96); MEAN PLT VOLUME 8.3 fl (7.5-11.1); MONO % 3.2 % (3.8-10.2); NEUT % 68.1 % (42.8-82.8); PLATELET COUNT 428 10^3/uL (134-434); RBC 5.12 M/mm3 (3.60-5.2); RDW 14.1 % (11.6-15.6); WHITE BLOOD COUNT 6.7 K/mm3 (4.0-10.0)
[2023-03-07 12:57] LABS: POTASSIUM 4.1 mmol/L (3.5-5.1)
[2023-03-07 13:00] LABS: ALBUMIN 4.5 g/dl (3.4-5.0); BLOOD UREA NITROGEN 8.8 mg/dL (7-18); CALCIUM 10.1 mg/dL (8.5-10.1)
[2023-03-07 13:03] LABS: CREATININE 0.7 mg/dL (0.55-1.3)
[2023-03-07 13:05] LABS: BILIRUBIN,TOTAL 0.3 mg/dL (0.2-1); TOT PROT 9.4 g/dl (6.4-8.2)
[2023-03-07] MEDS ORDERED: HEPARIN NA (PORCINE) 5,000 UNITS/ML 1ML VIAL IVPUSH PRN ×2 (13:36)
[2023-03-07] MEDS ORDERED: HEPARIN INFUSION - 25,000 UNITS/500 ML INFUS.BAG IVPB ONE (13:58)
[2023-03-07] MEDS ORDERED: HEPARIN NA (PORCINE) 5,000 UNITS/ML 1ML VIAL ONE (13:58)
[2023-03-07] MEDS ORDERED: HEPARIN INFUSION - 25,000 UNITS/500 ML INFUS.BAG IVPB SCH (14:00)
[2023-03-07] MEDS ORDERED: CLOPIDOGREL BISULFATE 300 MG TABLET PO ONE (17:00)
[2023-03-07 18:45] VITALS: TEMP 98.1
[2023-03-07 21:23] VITALS: BP 137/73; PULSE 84; RESP 18
== END 2023-03-07 21:32 | disposition short-term general hospital (02) ==
LOC: JER 09:40 → JERBED 13:43 → UNDOADMIN 13:43 → JER 21:32
PROC: 3E033GC Introduction of Other Therapeutic Substance into Peripheral Vein, Percutaneous Approach (ICD-10-PCS; principal; 2023-03-07)
DX: R07.89 Other chest pain (principal); I21.4 Non-ST elevation (NSTEMI) myocardial infarction; R06.02 Shortness of breath; R42 Dizziness and giddiness; R05.9 Cough, unspecified; R09.81 Nasal congestion; Z20.822 Contact with and (suspected) exposure to COVID-19
CPT/HCPCS: 0241U-QW; 36415; 80053; 82962; 84484; 85025; 85730; 93005; 93010; 99291; J1644